=== PATIENT | male | born 1955 | race Caucasian/White ===

== ENCOUNTER 2021-03-08 08:03 | Inpatient (IN) | payer OTHER ==
[~2021-03-08] VITALS: Ht 182.9 cm; Wt 72.5 kg
[2021-03-08] MEDS ORDERED: DIPH,PERTUSS(ACELL),TET VAC/PF 0.5 ML IM-VACC ONE ×2 (09:00→12:21)
[2021-03-08] MEDS ORDERED: PLEASE ENTER HEIGHT AND WEIGHT MC SCH (09:00)
[2021-03-08] MEDS ORDERED: PLEASE ENTER ALLERGIES MC SCH (09:00)
[2021-03-08 09:13] LABS: MEAN CORPUSCULAR HEMOGLOBIN 37.2 pg (27.5-34.5); MEAN CORPUSCULAR HGB CONC 36.2 g/dL (33.2-36.2); PLATELET COUNT 86 x10^3/uL (130-400); RED BLOOD COUNT 3.53 x10^6/uL (4.38-5.82); RED CELL DISTRIBUTION WIDTH 14.2 % (9.4-14.8)
[2021-03-08 09:14] LABS: ALBUMIN 2.9 g/dL (3.4-5.0); ANION GAP 16 mmol/L (5-15); CALCIUM 8.7 mg/dL (8.5-10.1); CHLORIDE 89 mmol/L (98-107); CREATININE 0.75 mg/dL (0.7-1.3)
[2021-03-08 09:41] LABS: ANISOCYTOSIS 1+; BAND#(MANUAL) 2.98 x10^3/uL; BANDS%(MANUAL) 25 % (0-7); EOS#(MANUAL) 0.12 x10^3/uL (0.0-0.4); EOS% (MANUAL) 1 % (1-7); METAMYELOCYTES# (MANUAL) 0.24 x10^3/uL (0-0); METAMYELOCYTES% (MANUAL) 2 % (0-1); MONOS#(MANUAL) 0.48 x10^3/uL (0.3-2.7); MONOS% (MANUAL) 4 % (2-9); SEG#(MANUAL) 8.09 x10^3/uL (1.8-6.8); SEGS% (MANUAL) 68 % (42-75)
[2021-03-08 09:42] LABS: <PLATELET ESTIMATE> DECREASED; <PLT MORPHOLOGY> NORMAL PLT MORPH; PMNS WITH VACUOLES 1+; TOXIC GRAN 1+
[2021-03-08 09:43] LABS: OVALOCYTES 1+
[2021-03-08 09:44] LABS: ECHINOCYTES 1+
--- NOTE | 2021-03-08 12:08 | NUR ---
FELL DOWN STAIRS "FEW DAYS AGO" DENIES LOC. " I MISSED A STEP" C/O LEFT ARM PAIN, LEFT RIB PAIN. LEFT ELBOW +EDEMA, ERRYTHEMA WITH ASSESSMENT SEROUS FLUID LEAKING FROM LEFT ELBOW PATIETN DRINKS "ATLEAST A 6 PACK A DAY." LAST DRINK LAST NIGHT
[2021-03-08] MEDS ORDERED: BACITRACIN ZINC OINT 500U/GM, 0.9 GM ONE (12:21)
[2021-03-08] MEDS ORDERED: LORazepam 2 MG/ML, 1ML ONE ×3 (12:22→17:21)
[2021-03-08] MEDS ORDERED: DILTIAZEM 5 MG/ML, 5ML IVPush ONE (12:30)
[2021-03-08] MEDS ORDERED: LORazepam 2 MG/ML, 1ML IVPush ONE (12:30)
[2021-03-08] MEDS ORDERED: SODIUM CHLORIDE FLUSH 10ML SYR IVF ONE (12:30)
[2021-03-08] MEDS ORDERED: PIPERACILLIN/TAZO 3.375 GM in DEXTROSE 5% 50 ML IVPB ONE (12:30)
[2021-03-08] MEDS ORDERED: SODIUM CHLORIDE 0.9% 1,000 ML IV ONE ×2 (12:30→13:00)
[2021-03-08] MEDS ORDERED: ASPIRIN 81 MG TABLET CHEW PO ONE (12:30)
[2021-03-08] MEDS ORDERED: ASPIRIN 81 MG TABLET CHEW ONE (12:32)
[2021-03-08] MEDS ORDERED: DILTIAZEM 5 MG/ML, 5ML ONE (12:32)
--- NOTE | 2021-03-08 12:36 | NUR ---
ERP ASKED FOR BLOOF CULTRES PRIOR TO ABX ADMIN. ERP DEFERRING "HES NOT SEPTIC HES IN WITHDRAWAL AND HYPONATREMIC. HE JUST NEEDS THE ABX FOR MILD LEFT ELBOW INFECTION". 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
[2021-03-08] MEDS ORDERED: SODIUM CHLORIDE FLUSH 10ML SYR IVF PRN (13:00)
[2021-03-08 13:28] LABS: BILIRUBIN, DIRECT 0.9 mg/dL (0.1-0.2)
[2021-03-08 13:30] LABS: BILIRUBIN,INDIRECT 1.2 mg/dL (0.0-2.0); BILIRUBIN,TOTAL 2.1 mg/dL (0.2-1.0); TOTAL PROTEIN 7.1 g/dL (6.4-8.2)
[2021-03-08] MEDS ORDERED: ENALAPRILAT 1.25 MG/ML, 2ML IVPush PRN (13:30)
[2021-03-08] MEDS ORDERED: morphine SULFATE 10 MG/ML, 1ML IVPush PRN (13:30)
[2021-03-08] MEDS ORDERED: ONDANSETRON ODT 4 MG PO PRN (13:30)
[2021-03-08] MEDS ORDERED: ONDANSETRON 2MG/ML, 2ML IVPush PRN (13:30)
--- NOTE | 2021-03-08 13:45 | NUR ---
Covering primary for break, pt sleeping RR equal and unlabored wakes up with verbal; readjusted in bed for comfort/safety. IVF infusing. VSS. Will continue to monitor. AIDET provided.
[2021-03-08] MEDS ORDERED: LORazepam 1MG TABLET PO PRN ×4 (14:00)
[2021-03-08] MEDS ORDERED: SODIUM CHLORIDE 0.9% 1,000 ML IV SCH (14:00)
[2021-03-08] MEDS ORDERED: LORazepam 1MG TABLET ONE (14:18)
--- NOTE | 2021-03-08 14:32 | NUR ---
re-directable ciwa of 33-medicated with po ativan
[2021-03-08] MEDS ORDERED: METOPROLOL 1 MG/ML, 5ML IVPush PRN (16:30)
[2021-03-08] MEDS: LORazepam 2 MG/ML, 1ML IV PRN ×2 (16:30→17:31)
[2021-03-08] MEDS ORDERED: LORazepam 2 MG/ML, 1ML IV PRN ×4 (16:30)
--- NOTE | 2021-03-08 16:35 | NUR ---
made aware of patient continued etoh withdrawal sxs. verbal orders received for 2mg ivp ativan. patient medicated per emar
--- NOTE | 2021-03-08 17:33 | NUR ---
re-medicated for agitation bed bath performed-wound to sacrum noted-charted moved to hospital bed
[2021-03-08 19:40] VITALS: BP 101/68
[2021-03-08] MEDS: ALBUTEROL HFA 90 MCG/SPRAY INH SCH ×2 (19:53→20:12)
[2021-03-08] MEDS: METOPROLOL TARTRATE 25 MG TAB PO SCH (19:54)
[2021-03-08] MEDS: SODIUM CHLORIDE 0.9% 1,000 ML IV SCH (19:54)
[2021-03-08] MEDS: CHLORDIAZEPOXIDE 25 MG CAPSULE PO SCH ×4 (19:54→20:53)
[2021-03-08] MEDS: AMPICILLIN/SULBACTAM 3 GM in SODIUM CHLORIDE 0.9% 100 ML IV SCH (20:12)
[2021-03-09] MEDS: SODIUM CHLORIDE 0.9% 1,000 ML IV SCH ×3 (00:42→21:53)
[2021-03-09] MEDS: LORazepam 2 MG/ML, 1ML IV PRN ×3 (00:44→18:30)
[2021-03-09] MEDS: CHLORDIAZEPOXIDE 25 MG CAPSULE PO SCH ×6 (01:40→21:52)
[2021-03-09 02:03] VITALS: BP 124/79
[2021-03-09 02:19] LABS: MEAN CORPUSCULAR HEMOGLOBIN 36.8 pg (27.5-34.5); MEAN CORPUSCULAR HGB CONC 35.7 g/dL (33.2-36.2); MEAN PLATELET VOLUME 7.4 fL (7.4-10.4); PLATELET COUNT 57 x10^3/uL (130-400); RED BLOOD COUNT 2.85 x10^6/uL (4.38-5.82); RED CELL DISTRIBUTION WIDTH 14.2 % (9.4-14.8)
[2021-03-09 02:30] LABS: ANION GAP 9 mmol/L (5-15); CALCIUM 6.4 mg/dL (8.5-10.1); CHLORIDE 102 mmol/L (98-107); CREATININE 0.45 mg/dL (0.7-1.3)
[2021-03-09 02:45] LABS: ANISOCYTOSIS 1+; BAND#(MANUAL) 1.39 x10^3/uL; BANDS%(MANUAL) 19 % (0-7); EOS#(MANUAL) 0.07 x10^3/uL (0.0-0.4); EOS% (MANUAL) 1 % (1-7); LYMPH#(MANUAL) 0.15 x10^3/uL (1-3.4); LYMPHS% (MANUAL) 2 % (22-44); MONOS#(MANUAL) 0.51 x10^3/uL (0.3-2.7); MONOS% (MANUAL) 7 % (2-9); OVALOCYTES 1+; SEG#(MANUAL) 5.18 x10^3/uL (1.8-6.8); SEGS% (MANUAL) 71 % (42-75)
[2021-03-09 02:46] LABS: <PLATELET ESTIMATE> ADEQUATE; <PLT MORPHOLOGY> NORMAL PLT MORPH; ECHINOCYTES 1+; PMNS WITH VACUOLES 1+; TOXIC GRAN 1+
[2021-03-09] MEDS: AMPICILLIN/SULBACTAM 3 GM in SODIUM CHLORIDE 0.9% 100 ML IV SCH ×3 (05:40→21:51)
[2021-03-09] MEDS: METOPROLOL TARTRATE 25 MG TAB PO SCH ×2 (05:40→18:00)
[2021-03-09] MEDS: ALBUTEROL HFA 90 MCG/SPRAY INH SCH ×4 (05:41→21:51)
[2021-03-09 08:06] VITALS: BP 120/61
[2021-03-09 14:00] VITALS: BP 122/77
[2021-03-09] MEDS: THIAMINE 100MG TABLET PO SCH (14:00)
[2021-03-09] MEDS: FOLIC ACID 1 MG TABLET PO SCH (14:00)
[2021-03-09] MEDS ORDERED: POTASSIUM CHLORIDE 40 MEQ in SODIUM CHLORIDE 0.9% 500 ML IV ONE (17:00)
[2021-03-09] MEDS: POTASSIUM CHLORIDE 20 MEQ TAB.ER.PRT PO SCH (18:00)
[2021-03-09] MEDS ORDERED: OMNIPAQUE 350 MG/ML, 100ML BOTTLE ONE (19:34)
[2021-03-09 19:52] VITALS: BP 109/74
[2021-03-09] MEDS: LORazepam 0.5MG TABLET PO PRN (21:51)
[2021-03-10 00:51] VITALS: BP 120/86
[2021-03-10] MEDS: CHLORDIAZEPOXIDE 25 MG CAPSULE PO SCH ×2 (04:30→10:30)
[2021-03-10 05:05] VITALS: BP 120/85
[2021-03-10] MEDS: METOPROLOL TARTRATE 25 MG TAB PO SCH ×2 (05:08→17:28)
[2021-03-10] MEDS: AMPICILLIN/SULBACTAM 3 GM in SODIUM CHLORIDE 0.9% 100 ML IV SCH ×3 (05:08→22:33)
[2021-03-10] MEDS: ALBUTEROL HFA 90 MCG/SPRAY INH SCH ×4 (05:09→22:33)
[2021-03-10 08:00] VITALS: BP 138/91
[2021-03-10 09:12] LABS: ANION GAP 10 mmol/L (5-15); CALCIUM 8.4 mg/dL (8.5-10.1); CHLORIDE 103 mmol/L (98-107); CREATININE 0.51 mg/dL (0.7-1.3)
[2021-03-10] MEDS: FOLIC ACID 1 MG TABLET PO SCH (11:17)
[2021-03-10] MEDS: THIAMINE 100MG TABLET PO SCH (11:17)
[2021-03-10] MEDS: POTASSIUM CHLORIDE 20 MEQ TAB.ER.PRT PO SCH ×2 (11:17→17:27)
[2021-03-10 13:28] VITALS: BP 148/95
[2021-03-10] MEDS: ACETAMINOPHEN 325 MG TABLET PO PRN (13:46)
[2021-03-10] MEDS: LORazepam 0.5MG TABLET PO PRN ×2 (13:46→17:30)
[2021-03-10 18:48] VITALS: BP 128/88
[2021-03-11 00:57] VITALS: BP 138/95
[2021-03-11] MEDS: ALBUTEROL HFA 90 MCG/SPRAY INH SCH ×4 (06:28→21:15)
[2021-03-11] MEDS: AMPICILLIN/SULBACTAM 3 GM in SODIUM CHLORIDE 0.9% 100 ML IV SCH ×3 (06:28→22:46)
[2021-03-11] MEDS: METOPROLOL TARTRATE 25 MG TAB PO SCH ×2 (06:28→17:51)
[2021-03-11 07:13] VITALS: BP 135/93
[2021-03-11] MEDS: FOLIC ACID 1 MG TABLET PO SCH (08:26)
[2021-03-11] MEDS: THIAMINE 100MG TABLET PO SCH (08:26)
[2021-03-11] MEDS: LORazepam 0.5MG TABLET PO PRN (08:36)
[2021-03-11 12:51] VITALS: BP 132/79
[2021-03-11 17:51] VITALS: BP 144/91
[2021-03-11 19:06] VITALS: BP 134/94
[2021-03-11] MEDS: ACETAMINOPHEN 325 MG TABLET PO PRN (22:54)
[2021-03-12 00:43] VITALS: BP 122/84
[2021-03-12 06:19] VITALS: BP 137/88
[2021-03-12] MEDS: METOPROLOL TARTRATE 25 MG TAB PO SCH ×2 (06:22→18:13)
[2021-03-12] MEDS: ALBUTEROL HFA 90 MCG/SPRAY INH SCH ×4 (06:22→22:20)
[2021-03-12] MEDS: AMPICILLIN/SULBACTAM 3 GM in SODIUM CHLORIDE 0.9% 100 ML IV SCH ×3 (06:40→22:20)
[2021-03-12] MEDS: FOLIC ACID 1 MG TABLET PO SCH (08:14)
[2021-03-12] MEDS: THIAMINE 100MG TABLET PO SCH (08:14)
[2021-03-12] MEDS: ACETAMINOPHEN 325 MG TABLET PO PRN (11:32)
[2021-03-12 14:30] VITALS: BP 126/83
[2021-03-12 21:06] VITALS: BP 128/84
[2021-03-12] MEDS: LORazepam 0.5MG TABLET PO PRN (22:37)
[2021-03-13 02:07] VITALS: BP 128/89
[2021-03-13 06:30] VITALS: BP 121/81
[2021-03-13] MEDS: AMPICILLIN/SULBACTAM 3 GM in SODIUM CHLORIDE 0.9% 100 ML IV SCH ×3 (06:32→22:48)
[2021-03-13] MEDS: METOPROLOL TARTRATE 25 MG TAB PO SCH ×2 (06:32→18:19)
[2021-03-13] MEDS: ALBUTEROL HFA 90 MCG/SPRAY INH SCH ×4 (06:32→21:26)
[2021-03-13] MEDS: FOLIC ACID 1 MG TABLET PO SCH (10:42)
[2021-03-13] MEDS: THIAMINE 100MG TABLET PO SCH (10:42)
[2021-03-13] MEDS: LIDODERM 5% PATCH TD SCH (10:42)
[2021-03-13 13:01] VITALS: BP 133/90
[2021-03-13] MEDS: MELATONIN 5 MG TABLET PO PRN (21:31)
[2021-03-13 21:33] VITALS: BP 140/88
[2021-03-14 03:11] VITALS: BP 122/82
[2021-03-14] MEDS: ACETAMINOPHEN 325 MG TABLET PO PRN ×3 (03:17→20:59)
[2021-03-14 06:03] VITALS: BP 125/76
[2021-03-14] MEDS: AMPICILLIN/SULBACTAM 3 GM in SODIUM CHLORIDE 0.9% 100 ML IV SCH ×3 (06:06→22:20)
[2021-03-14] MEDS: METOPROLOL TARTRATE 25 MG TAB PO SCH ×2 (06:07→20:59)
[2021-03-14] MEDS: ALBUTEROL HFA 90 MCG/SPRAY INH SCH ×4 (06:07→21:01)
[2021-03-14 07:25] VITALS: BP 121/82
[2021-03-14] MEDS: FOLIC ACID 1 MG TABLET PO SCH (09:21)
[2021-03-14] MEDS: THIAMINE 100MG TABLET PO SCH (09:21)
[2021-03-14 13:05] VITALS: BP 124/83
[2021-03-14] MEDS: LIDODERM 5% PATCH TD SCH (14:00)
[2021-03-14 20:49] VITALS: BP 135/81
[2021-03-14] MEDS: MELATONIN 5 MG TABLET PO PRN (20:59)
[2021-03-15 01:39] VITALS: BP 133/88
[2021-03-15 06:05] VITALS: BP 134/85
[2021-03-15] MEDS: ALBUTEROL HFA 90 MCG/SPRAY INH SCH ×2 (06:07→11:00)
[2021-03-15] MEDS: METOPROLOL TARTRATE 25 MG TAB PO SCH (06:07)
[2021-03-15] MEDS: AMPICILLIN/SULBACTAM 3 GM in SODIUM CHLORIDE 0.9% 100 ML IV SCH (06:07)
[2021-03-15] MEDS: ACETAMINOPHEN 325 MG TABLET PO PRN (06:15)
[2021-03-15 06:45] VITALS: BP 133/79
[2021-03-15] MEDS ORDERED: AMOX1TAB64 PO (08:58)
[2021-03-15] MEDS: FOLIC ACID 1 MG TABLET PO SCH (09:17)
[2021-03-15] MEDS: THIAMINE 100MG TABLET PO SCH (09:17)
[2021-03-15] MEDS: LIDODERM 5% PATCH TD SCH (11:00)
== END 2021-03-15 10:45 | disposition home or self-care (01) | DRG 603 ==
LOC: SUATTDRO 13:09 → ED 13:30 → ORIP 13:47 → EDIP 14:00 → 5SO 19:10
PROVIDERS: ADMIT Hospitalist; ATTEND Family Medicine
DX: L03.114 Cellulitis of left upper limb (principal); E87.1 Hypo-osmolality and hyponatremia; F10.231 Alcohol dependence with withdrawal delirium; F17.200 Nicotine dependence, unspecified, uncomplicated; W10.9XXA Fall (on) (from) unspecified stairs and steps, initial encounter; I48.91 Unspecified atrial fibrillation; S09.90XA Unspecified injury of head, initial encounter; W18.39XA Other fall on same level, initial encounter; Y93.89 Activity, other specified; Y99.8 Other external cause status; Y92.009 Unspecified place in unspecified non-institutional (private) residence as the place of occurrence of the external cause
CPT/HCPCS: 36415; 70450; 71046; 80048; 80076; 82040; 83735; 84295; 85025; 87070; 87147; 87205; 90471; 90715; 93005; 96365; 96375; 99291; G0378; J0295; J2543; J3480; Q9967; J2060; J7030; J7040